=== PATIENT | male | born 1990 | race Two or more races ===

== ENCOUNTER 2018-01-13 03:53 | Emergency (ER) | payer SELFPAY ==
[~2018-01-13] VITALS: Ht 170.2 cm; Wt 68.0 kg
--- NOTE | 2018-01-13 03:57 | NUR ---
called pt in wr, no response
[2018-01-13 04:28] VITALS: BP 134/63
[2018-01-13] MEDS ORDERED: IBUPROFEN 600 MG TABLET PO ONE (05:57)
[2018-01-13] MEDS ORDERED: CYCLOBENZAPRINE 10 MG TABLET ONE (05:57)
[2018-01-13] MEDS: IBUPROFEN 600 MG TABLET PO ONE (06:04)
[2018-01-13] MEDS: CYCLOBENZAPRINE 10 MG TABLET PO ONE (06:04)
== END 2018-01-13 06:44 | disposition home or self-care (01) ==
LOC: ER 03:54
DX: S06.0X0A Concussion without loss of consciousness, initial encounter (principal); M54.6 Pain in thoracic spine; V43.52XA Car driver injured in collision with other type car in traffic accident, initial encounter; Y93.89 Activity, other specified; Y92.410 Unspecified street and highway as the place of occurrence of the external cause; Y99.8 Other external cause status
CPT/HCPCS: 70450; 99284; A4606; Z7610